=== PATIENT | male | born 1990 ===

== ENCOUNTER 2021-01-12 15:56 | Emergency (ER) | payer MEDICAID ==
[~2021-01-12] VITALS: Ht 193 cm; Wt 104.3 kg
[2021-01-12 18:42] LABS: Basophils # (auto) 0 10 ^3/uL (0-0.2); Basophils % (auto) 0.2 % (0.0-2.0); Eosinophils # (auto) 0.1 10 ^3/uL (0-0.8); Eosinophils % (auto) 0.8 % (0.0-7.0); Hematocrit 46.5 % (41.0-53.0); Hemoglobin 15.8 g/dL (13.5-17.5); Lymphocytes # (auto) 1.6 10 ^3/uL (0.4-5.4); Lymphocytes % (auto) 11.3 % (10.0-50.0); Mean Corpuscular Hemoglobin 31.1 pg (28.0-32.0); Mean Corpuscular Volume 91.4 fL (80.0-100.0); Monocytes # (auto) 0.8 10 ^3/uL (0-1.3); Monocytes % (auto) 5.9 % (0.0-12.0); Neutrophils # (auto) 11.6 10 ^3/uL (1.6-8.6); Neutrophils % (auto) 81.8 % (37.0-80.0); Red Blood Cells 5.09 10^6/uL (4.5-5.90); Red Cell Distribution Width 13.3 % (11.8-14.3); White Blood Cell 14.2 10^3/uL (4.4-10.8)
[2021-01-12 18:58] LABS: INR 0.99 (0.9-1.15); Partial Thromboplastin Time 26.2 sec (23.6-33.0)
[2021-01-12 19:18] LABS: Albumin 4.1 g/dL (3.4-5.0); Calcium 9.1 mg/dL (8.5-10.1)
[2021-01-12 19:22] LABS: BUN/Creatinine Ratio 17.2; Bilirubin, Total 0.3 mg/dL (0.2-1.0)
[2021-01-13 01:40] VITALS: BP 152/87
== END 2021-01-13 01:52 | disposition home or self-care (01) ==
LOC: EDBD 15:56 → EDUNIT# 15:56 → ER 15:56
DX: R42 Dizziness and giddiness (principal); R19.7 Diarrhea, unspecified; D72.829 Elevated white blood cell count, unspecified; Z20.822 Contact with and (suspected) exposure to COVID-19
CPT/HCPCS: 36415; 74176; 80053; 82150; 83690; 85025; 85610; 85730; 87426; 93005